=== PATIENT | female | born 2000 | race African-American/Black ===

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

== ENCOUNTER 2019-03-05 07:44 | Emergency (ER) | payer BC ==
[2019-03-05 07:58] VITALS: BP 112/77
--- NOTE | 2019-03-05 09:08 | UC ---
Ear Complaint HPI - HPI Summary HPI Summary: Pleasant 19 yo female c/o R ear pain, x over one week. Has been taking amoxicillin x 6 days, last took last night. No fever / chills. No cough / sob. No fever /chills. No GI issues reported. - History of Current Complaint Chief Complaint: UCEar Stated Complaint: EAR PAIN Time Seen by Provider: 03/05/19 08:40 Hx Obtained From: Patient Hx Last Menstrual Period: 02/24/19 Pain Intensity: 7 - Allergies/Home Medications Allergies/Adverse Reactions: Allergies Allergy/AdvReac Type Severity Reaction Status Date / Time No Known Allergies Allergy Verified 03/05/19 07:59 Home Medications: Home Medications Amoxicillin PO (*) [Amoxicillin 875 MG (*)] 875 mg PO DAILY 03/05/19 [History Confirmed 03/05/19] PMH/Surg Hx/FS Hx/Imm Hx Previously Healthy: Yes - Surgical History Surgical History: None - Family History Known Family History: Positive: Non-Contributory - Social History Alcohol Use: Weekly Substance Use Type: None Smoking Status (MU): Never Smoked Tobacco Review of Systems All Other Systems Reviewed And Are Negative: Yes Constitutional: Positive: Negative Skin: Positive: Negative - somtimes gets pimples Eyes: Positive: Negative ENT: Positive: Other - see hpi Respiratory: Positive: Negative Cardiovascular: Positive: Negative Gastrointestinal: Positive: Negative Genitourinary: Positive: Negative Motor: Positive: Negative Neurovascular: Positive: Negative Musculoskeletal: Positive: Negative Neurological: Positive: Negative Psychological: Positive: Negative Is Patient Immunocompromised?: No Physical Exam Triage Information Reviewed: Yes Appearance: Well-Appearing - looks tired but nad, Well-Nourished Vital Signs: Initial Vital Signs Temp 97.8 F 03/05/19 07:54 Pulse 70 03/05/19 07:54 Resp 18 03/05/19 07:54 BP 112/77 03/05/19 07:54 Pulse Ox 98 03/05/19 07:54 Vital Signs Reviewed: Yes Eye Exam: Normal - nad ENT Exam: Other - R tm not visible d/t cerumen impaction. Pimple noted in tragus, not frankly cellulitic. L Tm chen, eac some wax but clear to tm s/p irrigation - eac inflamed (more than expected with irrigation) TM chen / red, intact ENT: Positive: Pharynx normal - mild post redness, uvula midline, no sores Neck exam: Normal Neck: Positive: Supple, Nontender, No Lymphadenopathy Respiratory Exam: Normal - nad Cardiovascular Exam: Normal - no c/o hr nl Abdominal Exam: Normal Musculoskeletal Exam: Normal Neurological Exam: Normal Psychological Exam: Normal Skin Exam: Normal - see pimple o/w nad Ear Complaint Course/Dx - Course Course Of Treatment: R eac irrigated. see pe feels a little better s/p irrigation - Differential Dx/Diagnosis Provider Diagnosis: Cerumen impaction, Serous otitis media, Otitis externa Discharge ED - Sign-Out/Discharge Documenting (check all that apply): Patient Departure All imaging exams completed and their final reports reviewed: No Studies - Discharge Plan Condition: Stable Disposition: HOME Patient Education Materials: Cerumen Impaction (ED), Serous Otitis Media (ED), Otitis Externa (ED), Temporomandibular Disorder (ED) Referrals: No Primary Care Phys,NOPCP [Primary Care Provider] - [facility] @ [Outside] Additional Instructions: Please have your ear rechecked toward the end of this week. Seek medical attention for worse or new problems in the meantime. Hydrate. Follow up with you primary care physician, and dentist (routine check), upon return home. - Billing Disposition and Condition Condition: STABLE Disposition: Home
== END 2019-03-05 09:49 | disposition home or self-care (01) ==
LOC: UCEAST 07:44
DX: H61.21 Impacted cerumen, right ear (principal); H65.91 Unspecified nonsuppurative otitis media, right ear; H60.91 Unspecified otitis externa, right ear
CPT/HCPCS: 99213; G0463